=== PATIENT | female | born 1995 | race American Indian/Alaskan Native ===

== ENCOUNTER 2016-09-10 14:49 | Outpatient (CLI) | payer MEDICAID ==
[2016-09-10] MEDS ORDERED: LACTATED RINGERS 500 ML IV ONE (15:04)
[2016-09-10 15:23] VITALS: BP 93/48
[2016-09-10] MEDS ORDERED: IMODIUM PO PRN (15:42)
[2016-09-10] MEDS ORDERED: ZOFRAN IV PRN (15:42)
[2016-09-10 16:49] LABS: Bilirubin,Urine NEG (Negative); Blood,Urine NEG (Negative); Ketones,Urine NEG (Negative); Leukocyte Esterase,Urine NEG (Negative); Nitrite,Urine NEG (Negative); Protein,Urine <15 mg/dL mg/dL (Negative); Urobilinogen,Urine < 2.0 mg/dL (<2.0)
== END 2016-09-10 17:19 | disposition home or self-care (01) ==
LOC: TRG 14:49
PROVIDERS: ATTEND Obstetrics & Gynecology
DX: Z34.90 Encounter for supervision of normal pregnancy, unspecified, unspecified trimester (principal); Z3A.00 Weeks of gestation of pregnancy not specified
CPT/HCPCS: 81001; 96360; 96361; 96374; J2405; J7120

== ENCOUNTER 2016-11-24 15:04 | Outpatient (CLI) | payer MEDICAID ==
[2016-11-24] MEDS ORDERED: LACTATED RINGERS 500 ML IV ONE (15:44)
[2016-11-24 16:01] LABS: Urine Drugs of Abuse Note Disclamer
[2016-11-24 16:22] LABS: Bilirubin,Urine NEG (Negative); Blood,Urine NEG (Negative); Ketones,Urine NEG (Negative); Leukocyte Esterase,Urine NEG (Negative); Mucus,Urine 1+ /HPF; Nitrite,Urine NEG (Negative)
[2016-11-24 16:29] VITALS: BP 101/50
== END 2016-11-24 17:16 | disposition home or self-care (01) ==
LOC: TRG 15:04
PROVIDERS: ATTEND Obstetrics & Gynecology
DX: Z34.93 Encounter for supervision of normal pregnancy, unspecified, third trimester (principal); Z3A.31 31 weeks gestation of pregnancy
CPT/HCPCS: 59025; 80307; 81001

== ENCOUNTER 2016-12-08 22:02 | Outpatient (CLI) | payer MEDICAID ==
[2016-12-08] MEDS ORDERED: LACTATED RINGERS 500 ML IV ONE (22:04)
[2016-12-08 22:21] VITALS: BP 108/56
[2016-12-08 23:02] LABS: Bacteria,Urine 1+ /HPF (Negative); Bilirubin,Urine NEG (Negative); Blood,Urine NEG (Negative); Ketones,Urine NEG (Negative); Leukocyte Esterase,Urine SM (Negative); Mucus,Urine FEW /HPF; Nitrite,Urine NEG (Negative); Protein,Urine <15 mg/dL mg/dL (Negative)
== END 2016-12-08 23:22 | disposition home or self-care (01) ==
LOC: TRG 22:02
PROVIDERS: ATTEND Obstetrics & Gynecology
DX: O47.03 False labor before 37 completed weeks of gestation, third trimester (principal); Z3A.33 33 weeks gestation of pregnancy
CPT/HCPCS: 59025; 81001

== ENCOUNTER 2016-12-13 19:30 | Inpatient (IN) | payer MEDICAID ==
[2016-12-13] MEDS ORDERED: LACTATED RINGERS 500 ML IV ONE (20:01)
[2016-12-13 20:31] LABS: Bilirubin,Urine NEG (Negative); Blood,Urine NEG (Negative); Ketones,Urine NEG (Negative); Leukocyte Esterase,Urine NEG (Negative); Nitrite,Urine NEG (Negative); Protein,Urine <15 mg/dL mg/dL (Negative); Urobilinogen,Urine < 2.0 mg/dL (<2.0); WBC,Urine < 1.0 /HPF (0.0-6.0)
[2016-12-13] MEDS ORDERED: SUDAFED PO PRN (21:19)
[2016-12-13] MEDS ORDERED: DEEP SEA NS PRN (21:19)
[2016-12-13] MEDS ORDERED: ZOFRAN IV PRN (21:19)
[2016-12-13] MEDS ORDERED: MYLICON PO PRN (21:19)
[2016-12-13] MEDS ORDERED: ROBITUSSIN DM PO PRN (21:19)
[2016-12-13] MEDS ORDERED: ALUM-MAG HYDROX-SIMETH 200-200-20MG/5ML PO PRN (21:19)
[2016-12-13] MEDS ORDERED: COLACE PO PRN (21:19)
[2016-12-13] MEDS ORDERED: MILK OF MAGNESIA PO PRN (21:19)
[2016-12-13] MEDS ORDERED: AMBIEN PO PRN (21:19)
[2016-12-13] MEDS ORDERED: TYLENOL PO PRN (21:19)
[2016-12-13] MEDS ORDERED: BENADRYL PO PRN (21:19)
--- NOTE | 2016-12-13 21:39 | History and Physical Report ---
History of Present Illness Date of examination: 12/13/16 Date of admission: 12/13/16 21:15 Chief complaint: Contractions/labor History of present illness: This is the 6th time during this she presented to triage c/o labor, her cervix was 0/0/-3 at her visit 12/08/16, today she is noted to be 2/70/-2 and is admitted for steroid therapy and observation EDC Calculations LMP: 01/23/2017 EDC Confirmation: 01/23/2017 Gestational Age: 14 5/7 weeks Past History : 3 Term Births: 1 Premature Births: 0 Living Children: 1 Para: 1 Mult. Births: 0 Prev : 0 Prev. attempt? 0 Aborta: 1 Elect. Ab: 0 Spont. Ab: 1 Ectopics: 0 # 1 Delivery date: 02/17/2011 Weeks Gestation: 40 labor: no Delivery type: Hours of labor: 8 Anesthesia type: epidural Delivery location: [place] Sex: Male weight: 6-4 Name: Joshua # 2 Delivery date: 01/2016 Weeks Gestation: 5 Delivery type: SAB Comments: No D&C Past Medical History: Negative Past Medical History Past Surgical History: Negative Past Surgical History Past Medical History Surgery (Non-upper shaper): Negative Past Surgical History Abnormal PAP: negative Uterine Anomaly: negative Social Hx: Patient is single engaged Infection History Hx of STD: Trich HIV Risk Eval: low risk Hepatitis B Risk Eval: low risk Personal hx. of genital herpes: no Partner hx. of genital herpes: no Genetic History Congenital Heart Defect: Mom: no Dad: no Felecia Disease: Mom: no Dad: no Thalassemia Mom: no Dad: no Neural Tube Defect Mom: no Dad: no Down's Syndrome Mom: no Dad: no Kartik-Sachs Mom: no Dad: no Sickle Cell Disease/Trait Mom: no Dad: no Hemophilia Mom: no Dad: no Muscular Dystrophy Mom: no Dad: no Cystic Fibrosis Mom: no Dad: no Justin Chorea Mom: no Dad: no Mental Retardation Mom: no Dad: no Fragile X Mom: no Dad: no Other Genetic/Chromosomal Disorder Mom: no Dad: no Child w/other defect Mom: no Dad: no Enviromental Exposures Xray Exposure: yes Medication, drug, or alcohol use since LMP: yes Chemical/Other Exposure: yes Exposure to Cat Liter: no Active Medications (reviewed today): None Current Allergies (reviewed today): No known allergies Past History - Obstetrical History Expected Date of Delivery: 01/23/17 Actual Gestation: 34 Week(s) 1 Day(s) : 3 Medications and Allergies Allergies Allergy/AdvReac Type Severity Reaction Status Date / Time No Known Allergies Allergy Verified 10/28/16 08:25 Home Medications Medication Instructions Recorded Confirmed Last Taken Type Vit No.130/Iron/FA 1 each PO DAILY 10/28/16 12/13/16 12/11/16 14:00 History [ Tablet] 1 Active Meds: Active Medications Acetaminophen (Tylenol) 650 mg PO Q4H PRN PRN Reason: Pain MILD(1-3)/Fever >100.5/CONTEH Al Hydrox/Mg Hydrox/Simethicone (Alum-Mag Hydrox-Simeth [id number]/5ml) 30 ml PO Q6H PRN PRN Reason: Indigestion Betamethasone Acet/Betameth SodPhos ([place] Soluspan) 12 mg IM Q24HR MAXX Stop: 12/14/16 10:01 Diphenhydramine HCl (Benadryl) 25 mg PO Q6H PRN PRN Reason: Itching Docusate Sodium (Colace) 100 mg PO Q12H PRN PRN Reason: Constipation Guaifenesin (Robitussin Dm) 10 ml PO Q6H PRN PRN Reason: Cough Lactated Ringer's (Lactated Ringers) 1,000 mls @ 125 mls/hr IV DIRECT MAXX Magnesium Hydroxide (Milk Of Magnesia) 30 ml PO QHS PRN PRN Reason: Laxative Effect Multivitamins/Iron/Calcium ( Vitamin) 1 each PO QDAY MAXX Ondansetron HCl (Zofran) 4 mg IV Q6H PRN PRN Reason: Nausea And Vomiting Pseudoephedrine HCl (Sudafed) 30 mg PO Q4H PRN PRN Reason: Nasal Congestion Simethicone (Mylicon) 80 mg PO Q6H PRN PRN Reason: Gas pain Sodium Chloride (Deep Sea) 2 spray NS Q4H PRN PRN Reason: Congestion Zolpidem Tartrate (Ambien) 5 mg PO ONCE PRN PRN Reason: Sleep Review of Systems All systems: negative Genitourinary: contractions - Vital Signs Vital signs: Vital Signs Pulse BP 70 96/53 12/13/16 19:44 12/13/16 19:44 Temp Pulse Resp BP Pulse Ox 98.1 F 70 18 96/53 12/13/16 19:57 12/13/16 19:57 12/13/16 19:57 12/13/16 19:57 - Physical Exam Breasts: Positive: deferred Lungs: Positive: Normal air movement Abdomen: Positive: normal appearance, soft Results Abnormal lab results 12/13/16 Range/Units 20:04 Ur Specific [place] 1.002 L (1.003-1.030) All other labs normal. Assessment and Plan - Patient Problems (1) 34 weeks gestation of Current Visit: Yes Status: Acute (2) labor in third trimester Current Visit: Yes Status: Acute Qualifiers: labor delivery status: without delivery Fetus number: F Qualified Code(s): O60.03 - labor without delivery, third trimester Plan to address problem: Admit for observation and steroid therapy
[2016-12-13 21:51] LABS: Hematocrit 31.9 % (30.3-42.9); Hemoglobin 10.6 gm/dl (10.1-14.3); Mean Corpuscular HGB Conc 33 % (30-34); Mean Corpuscular Hemoglobin 29 pg (28-32); Mean Corpuscular Volume 86 fl (79-97); Platelet Count 253 K/mm3 (140-440); White Blood Count 11.6 K/mm3 (4.5-11.0)
[2016-12-13] MEDS: CELESTONE SOLUSPAN IM SCH (23:00)
[2016-12-14] MEDS: LACTATED RINGERS 1,000 ML IV SCH ×2 (01:21→20:19)
[2016-12-14 03:37] LABS: Bilirubin,Urine NEG (Negative); Blood,Urine NEG (Negative); Ketones,Urine NEG (Negative); Leukocyte Esterase,Urine NEG (Negative); Nitrite,Urine NEG (Negative); Protein,Urine <15 mg/dL mg/dL (Negative); WBC,Urine < 1.0 /HPF (0.0-6.0)
[2016-12-14] MEDS ORDERED: PRENATAL VITAMIN PO SCH (10:00)
--- NOTE | 2016-12-14 10:30 | Ultrasound Report ---
Gestation: Single Position: Cephalic Amniotic Fluid: ALDEN = 11.8 cm Placenta: Anterior Placental Grade: 1 Heart Rate: 123 BPM Cervical length: 3.6 cm (Normal > 3 cm) NEUROANATOMY VISUALIZED: Nonvisualized. ANATOMY VISUALIZED: Normal Stomach Kidneys Bladder Diaphragm 4 Chamber Heart Heart 3 Vessel Cord Abd. Cord Insert Limited spine due to position BPD: 8.6 cm = 34 w 3 d HC: 30.6 cm = 34 w d AC: 31.4 cm = 35 w 2 d FL: 6.8 cm = 35 w d HC/AC Ratio: 0.97 Estimated Weight: 2569 grams US Gest. Age = 34 w 4 d EDC: 01/20/17.
--- NOTE | 2016-12-14 11:54 | Progress Note ---
Assessment and Plan Patient resting in bed, states " I feel terrible" reports pain and back that radiates to abd. She denies srom or vag bleeding. TOCO not tracing any ctx, placement checked. Abd palpated soft, no ctx noted during assessment. Plan to continue observation, complete steroids and monitor for signs of labor. Will reexamine cervix tomorrow unless signs of labor present. FHT CAT 1. Continue current plan of care. - Patient Problems (1) 34 weeks gestation of Current Visit: Yes Status: Acute (2) labor in third trimester Current Visit: Yes Status: Acute Qualifiers: labor delivery status: without delivery Fetus number: F Qualified Code(s): O60.03 - labor without delivery, third trimester Subjective - Subjective Date of service: 12/14/16 Principal diagnosis: IUP @ 34+5, contractions, steroids Patient reports: other (pt complains of back pain and abd pressure - no leaking or bleeding.) Objective - Vital Signs Vital Signs: Vital Signs - 12hr 12/13/16 12/13/16 12/13/16 23:48 23:53 23:58 Temperature Pulse Rate 79 76 80 Pulse Rate [ From Monitor] Respiratory Rate Blood Pressure Blood Pressure [Left Arm] O2 Sat by Pulse 98 97 97 Oximetry 12/14/16 12/14/16 12/14/16 00:03 00:08 00:13 Temperature Pulse Rate 81 75 72 Pulse Rate [ From Monitor] Respiratory Rate Blood Pressure Blood Pressure [Left Arm] O2 Sat by Pulse 96 96 95 Oximetry 12/14/16 12/14/16 12/14/16 00:18 00:23 00:29 Temperature Pulse Rate 74 80 90 Pulse Rate [ From Monitor] Respiratory Rate Blood Pressure Blood Pressure [Left Arm] O2 Sat by Pulse 95 96 99 Oximetry 12/14/16 12/14/16 12/14/16 00:34 00:39 00:44 Temperature Pulse Rate 80 90 80 Pulse Rate [ From Monitor] Respiratory Rate Blood Pressure Blood Pressure [Left Arm] O2 Sat by Pulse 98 98 97 Oximetry 12/14/16 12/14/16 12/14/16 00:48 00:54 00:57 Temperature Pulse Rate 80 94 H 89 Pulse Rate [ From Monitor] Respiratory Rate Blood Pressure Blood Pressure [Left Arm] O2 Sat by Pulse 97 97 93 Oximetry 12/14/16 12/14/1617 00:59 01:04 01:09 Temperature Pulse Rate 79 79 82 Pulse Rate [ From Monitor] Respiratory Rate Blood Pressure Blood Pressure [Left Arm] O2 Sat by Pulse 97 97 97 Oximetry 12/14/16 12/14/16 12/14/16 01:14 01:19 01:24 Temperature Pulse Rate 90 79 79 Pulse Rate [ From Monitor] Respiratory Rate Blood Pressure Blood Pressure [Left Arm] O2 Sat by Pulse 97 96 97 Oximetry 12/14/16 12/14/16 12/14/16 01:29 01:30 01:33 Temperature 98.0 F Pulse Rate 83 85 Pulse Rate [ From Monitor] Respiratory Rate Blood Pressure Blood Pressure [Left Arm] O2 Sat by Pulse 96 96 Oximetry 12/14/16 12/14/16 12/14/16 01:39 01:44 01:49 Temperature Pulse Rate 81 90 94 H Pulse Rate [ From Monitor] Respiratory Rate Blood Pressure Blood Pressure [Left Arm] O2 Sat by Pulse 96 96 96 Oximetry 12/14/16 12/14/16 12/14/16 01:54 01:59 02:04 Temperature Pulse Rate 81 81 112 H Pulse Rate [ From Monitor] Respiratory Rate Blood Pressure Blood Pressure [Left Arm] O2 Sat by Pulse 96 95 97 Oximetry 12/14/16 12/14/16 12/14/16 02:09 02:13 02:19 Temperature Pulse Rate 76 78 78 Pulse Rate [ From Monitor] Respiratory Rate Blood Pressure Blood Pressure [Left Arm] O2 Sat by Pulse 96 96 96 Oximetry 12/14/16 12/14/16 12/14/16 02:24 02:29 02:34 Temperature Pulse Rate 76 97 H 83 Pulse Rate [ From Monitor] Respiratory Rate Blood Pressure Blood Pressure [Left Arm] O2 Sat by Pulse 96 97 96 Oximetry 12/14/16 12/14/16 12/14/16 02:39 02:44 02:48 Temperature Pulse Rate 92 H 73 77 Pulse Rate [ From Monitor] Respiratory Rate Blood Pressure Blood Pressure [Left Arm] O2 Sat by Pulse 95 96 96 Oximetry 12/14/16 12/14/16 12/14/16 02:53 02:59 03:04 Temperature Pulse Rate 79 79 83 Pulse Rate [ From Monitor] Respiratory Rate Blood Pressure Blood Pressure [Left Arm] O2 Sat by Pulse 95 96 96 Oximetry 12/14/16 12/14/1612/14/17 03:08 03:13 03:19 Temperature Pulse Rate 73 78 76 Pulse Rate [ From Monitor] Respiratory Rate Blood Pressure Blood Pressure [Left Arm] O2 Sat by Pulse 96 96 96 Oximetry 12/14/16 12/14/16 12/14/16 03:23 03:28 03:33 Temperature Pulse Rate 85 76 78 Pulse Rate [ From Monitor] Respiratory Rate Blood Pressure Blood Pressure [Left Arm] O2 Sat by Pulse 96 96 95 Oximetry 12/14/16 12/14/16 12/14/16 03:39 03:45 03:49 Temperature Pulse Rate 72 72 69 Pulse Rate [ From Monitor] Respiratory Rate Blood Pressure Blood Pressure [Left Arm] O2 Sat by Pulse 99 98 96 Oximetry 12/14/16 12/14/16 12/14/16 03:51 03:55 03:57 Temperature Pulse Rate 70 86 91 H Pulse Rate [ From Monitor] Respiratory Rate Blood Pressure Blood Pressure [Left Arm] O2 Sat by Pulse 94 98 94 Oximetry 12/14/16 12/14/16 12/14/16 04:00 04:05 04:11 Temperature Pulse Rate 88 91 H 96 H Pulse Rate [ From Monitor] Respiratory Rate Blood Pressure Blood Pressure [Left Arm] O2 Sat by Pulse 96 96 97 Oximetry 12/14/16 12/14/16 12/14/16 04:17 04:21 04:26 Temperature Pulse Rate 102 H 87 79 Pulse Rate [ From Monitor] Respiratory Rate Blood Pressure Blood Pressure [Left Arm] O2 Sat by Pulse 96 97 97 Oximetry 12/14/16 12/14/16 12/14/16 04:31 04:36 04:41 Temperature Pulse Rate 75 81 85 Pulse Rate [ From Monitor] Respiratory Rate Blood Pressure Blood Pressure [Left Arm] O2 Sat by Pulse 96 97 97 Oximetry 12/14/16 12/14/16 12/14/16 04:46 04:51 04:56 Temperature Pulse Rate 82 69 89 Pulse Rate [ From Monitor] Respiratory Rate Blood Pressure Blood Pressure [Left Arm] O2 Sat by Pulse 97 98 97 Oximetry 12/14/16 12/14/16 12/14/16 05:01 05:06 05:11 Temperature Pulse Rate 78 94 H 79 Pulse Rate [ From Monitor] Respiratory Rate Blood Pressure Blood Pressure [Left Arm] O2 Sat by Pulse 97 97 98 Oximetry 12/14/16 12/14/1612/14/17 05:16 05:21 05:26 Temperature Pulse Rate 81 82 71 Pulse Rate [ From Monitor] Respiratory Rate Blood Pressure Blood Pressure [Left Arm] O2 Sat by Pulse 98 96 97 Oximetry 12/14/16 12/14/16 12/14/16 05:31 05:37 05:42 Temperature Pulse Rate 72 77 80 Pulse Rate [ From Monitor] Respiratory Rate Blood Pressure Blood Pressure [Left Arm] O2 Sat by Pulse 97 96 97 Oximetry 12/14/16 12/14/16 12/14/16 05:47 05:52 05:57 Temperature Pulse Rate 80 78 79 Pulse Rate [ From Monitor] Respiratory Rate Blood Pressure Blood Pressure [Left Arm] O2 Sat by Pulse 97 97 97 Oximetry 12/14/16 12/14/16 12/14/16 06:02 06:08 06:12 Temperature Pulse Rate 76 77 72 Pulse Rate [ From Monitor] Respiratory Rate Blood Pressure Blood Pressure [Left Arm] O2 Sat by Pulse 97 96 97 Oximetry 12/14/16 12/14/16 12/14/16 06:17 06:22 06:27 Temperature Pulse Rate 89 72 77 Pulse Rate [ From Monitor] Respiratory Rate Blood Pressure Blood Pressure [Left Arm] O2 Sat by Pulse 97 97 97 Oximetry 12/14/16 12/14/16 12/14/16 06:32 06:37 06:42 Temperature Pulse Rate 76 75 74 Pulse Rate [ From Monitor] Respiratory Rate Blood Pressure Blood Pressure [Left Arm] O2 Sat by Pulse 96 96 96 Oximetry 12/14/16 12/14/16 12/14/16 06:47 06:52 06:57 Temperature Pulse Rate 79 92 H 82 Pulse Rate [ From Monitor] Respiratory Rate Blood Pressure Blood Pressure [Left Arm] O2 Sat by Pulse 96 97 97 Oximetry 12/14/16 12/14/16 12/14/16 07:02 07:07 07:12 Temperature Pulse Rate 79 76 91 H Pulse Rate [ From Monitor] Respiratory Rate Blood Pressure Blood Pressure [Left Arm] O2 Sat by Pulse 98 97 97 Oximetry 12/14/16 12/14/16 12/14/16 07:17 07:22 07:27 Temperature Pulse Rate 80 76 82 Pulse Rate [ From Monitor] Respiratory Rate Blood Pressure Blood Pressure [Left Arm] O2 Sat by Pulse 98 98 96 Oximetry 12/14/16 12/14/16 12/14/16 07:34 07:39 07:44 Temperature Pulse Rate 100 H 77 90 Pulse Rate [ From Monitor] Respiratory Rate Blood Pressure Blood Pressure [Left Arm] O2 Sat by Pulse 96 97 97 Oximetry 12/14/16 12/14/16 12/14/16 07:49 07:54 07:59 Temperature Pulse Rate 78 79 94 H Pulse Rate [ From Monitor] Respiratory Rate Blood Pressure Blood Pressure [Left Arm] O2 Sat by Pulse 97 97 97 Oximetry 12/14/16 12/14/16 12/14/16 08:02 08:04 08:08 Temperature 97.6 F Pulse Rate 80 91 H Pulse Rate [ 85 From Monitor] Respiratory 18 Rate Blood Pressure 109/56 Blood Pressure 109/56 [Left Arm] O2 Sat by Pulse 97 98 Oximetry 12/14/16 12/14/16 12/14/16 08:09 08:13 08:14 Temperature Pulse Rate 83 91 H 91 H Pulse Rate [ From Monitor] Respiratory Rate Blood Pressure Blood Pressure [Left Arm] O2 Sat by Pulse 97 93 94 Oximetry 12/14/16 12/14/16 12/14/16 08:19 08:24 08:29 Temperature Pulse Rate 84 90 77 Pulse Rate [ From Monitor] Respiratory Rate Blood Pressure Blood Pressure [Left Arm] O2 Sat by Pulse 98 97 98 Oximetry 12/14/16 12/14/16 12/14/16 08:34 08:39 08:44 Temperature Pulse Rate 83 97 H 86 Pulse Rate [ From Monitor] Respiratory Rate Blood Pressure Blood Pressure [Left Arm] O2 Sat by Pulse 98 97 98 Oximetry 12/14/16 12/14/16 12/14/16 08:49 08:54 08:59 Temperature Pulse Rate 85 87 87 Pulse Rate [ From Monitor] Respiratory Rate Blood Pressure Blood Pressure [Left Arm] O2 Sat by Pulse 97 97 97 Oximetry 12/14/16 12/14/16 12/14/16 09:04 09:09 09:14 Temperature Pulse Rate 95 H 93 H 98 H Pulse Rate [ From Monitor] Respiratory Rate Blood Pressure Blood Pressure [Left Arm] O2 Sat by Pulse 97 97 97 Oximetry 12/14/16 12/14/16 12/14/16 09:19 09:24 09:29 Temperature Pulse Rate 96 H 82 95 H Pulse Rate [ From Monitor] Respiratory Rate Blood Pressure Blood Pressure [Left Arm] O2 Sat by Pulse 97 97 97 Oximetry 12/14/16 12/14/16 12/14/16 09:34 09:39 09:44 Temperature Pulse Rate 80 86 85 Pulse Rate [ From Monitor] Respiratory Rate Blood Pressure Blood Pressure [Left Arm] O2 Sat by Pulse 97 97 97 Oximetry 12/14/16 12/14/16 12/14/16 09:49 09:54 10:08 Temperature Pulse Rate 92 H 77 85 Pulse Rate [ From Monitor] Respiratory Rate Blood Pressure Blood Pressure [Left Arm] O2 Sat by Pulse 97 96 99 Oximetry 12/14/16 12/14/16 12/14/16 10:13 10:18 10:23 Temperature Pulse Rate 76 85 78 Pulse Rate [ From Monitor] Respiratory Rate Blood Pressure Blood Pressure [Left Arm] O2 Sat by Pulse 99 98 98 Oximetry 12/14/16 12/14/16 12/14/16 10:28 10:33 10:38 Temperature Pulse Rate 79 77 90 Pulse Rate [ From Monitor] Respiratory Rate Blood Pressure Blood Pressure [Left Arm] O2 Sat by Pulse 98 97 98 Oximetry 12/14/16 12/14/16 12/14/16 10:41 10:43 10:48 Temperature Pulse Rate 81 78 82 Pulse Rate [ From Monitor] Respiratory Rate Blood Pressure 108/58 Blood Pressure [Left Arm] O2 Sat by Pulse 98 98 Oximetry 12/14/16 12/14/16 12/14/16 10:53 10:58 11:03 Temperature Pulse Rate 105 H 80 81 Pulse Rate [ From Monitor] Respiratory Rate Blood Pressure Blood Pressure [Left Arm] O2 Sat by Pulse 99 98 98 Oximetry 12/14/16 12/14/16 12/14/16 11:08 11:13 11:18 Temperature Pulse Rate 82 95 H 80 Pulse Rate [ From Monitor] Respiratory Rate Blood Pressure Blood Pressure [Left Arm] O2 Sat by Pulse 98 98 99 Oximetry 12/14/16 12/14/16 12/14/16 11:23 11:28 11:33 Temperature Pulse Rate 77 72 80 Pulse Rate [ From Monitor] Respiratory Rate Blood Pressure Blood Pressure [Left Arm] O2 Sat by Pulse 98 98 99 Oximetry 12/14/16 12/14/16 11:38 11:43 Temperature Pulse Rate 75 83 Pulse Rate [ From Monitor] Respiratory Rate Blood Pressure Blood Pressure [Left Arm] O2 Sat by Pulse 97 97 Oximetry - Exam Breasts: normal Cardiovascular: Regular rate Lungs: Clear to auscultation, Normal air movement Abdomen: Present: normal appearance, soft Vulva: both: normal Uterus: Present: normal FHR: auscultation normal, category 1 Uterine Contraction Monitor Mode: External Uterine Contraction Frequency (min): none Uterine Contraction Pattern: Absent Uterine Tone Measurement Phase: Resting Extremities: normal Deep Tendon Reflex Grade: Normal +2 - Labs Labs: Abnormal Labs 12/13/16 12/13/16 20:04 21:00 WBC 11.6 H RDW 12.0 L Ur Specific [place] 1.002 L Laboratory Results - last 24 hr 12/13/16 12/13/16 12/13/16 20:04 21:00 21:00 WBC 11.6 H RBC 3.70 Hgb 10.6 Hct 31.9 MCV 86 MCH 29 MCHC 33 RDW 12.0 L Plt Count 253 Urine Color Straw Urine Turbidity Clear Urine pH 7.0 Ur Specific [place] 1.002 L Urine Protein <15 mg/dl Urine Glucose (UA) Neg Urine Ketones Neg Urine Blood Neg Urine Nitrite Neg Urine Bilirubin Neg Urine Urobilinogen < 2.0 Ur Leukocyte Esterase Neg Urine WBC (Auto) < 1.0 Urine RBC (Auto) 0.0 U Epithel Cells (Auto) < 1.0 Blood Type O POSITIVE Antibody Screen TNR OTONIEL Antibody Screen Negative 12/14/16 03:13 WBC RBC Hgb Hct MCV MCH MCHC RDW Plt Count Urine Color Yellow Urine Turbidity Clear Urine pH 7.0 Ur Specific [place] 1.009 Urine Protein <15 mg/dl Urine Glucose (UA) Neg Urine Ketones Neg Urine Blood Neg Urine Nitrite Neg Urine Bilirubin Neg Urine Urobilinogen 2.0 Ur Leukocyte Esterase Neg Urine WBC (Auto) < 1.0 Urine RBC (Auto) 3.0 U Epithel Cells (Auto) < 1.0 Blood Type Antibody Screen OTONIEL Antibody Screen
[2016-12-14] MEDS ORDERED: IMODIUM A-D PO PRN (14:09)
--- NOTE | 2016-12-14 14:17 | Progress Note ---
Assessment and Plan - Patient Problems (1) 34 weeks gestation of Current Visit: Yes Status: Acute Plan to address problem: -s/p steroids times one dose -second dose due tonight -will dc home tomorrow if stable and no signs of labor and no cervical change -cat I tracing at this time (2) labor in third trimester Current Visit: Yes Status: Acute Qualifiers: labor delivery status: without delivery Fetus number: F Qualified Code(s): O60.03 - labor without delivery, third trimester Plan to address problem: -will con't with current management. second dose of steroids are due at 2300pm. -If no cervical change or signs of active labor will plan of d/c home tomorrow. Subjective - Subjective Date of service: 12/14/16 Principal diagnosis: IUP @ 34+5, contractions, steroids Interval history: Pt c/o having some back pain and pelvic pressure but no abdominal contractions. She also c/o having some diarrhea. +FM. [place] f care di/w pt and questions and pt were addressed and answered. BMZ #2/2 will be given tonight at 2300pm. Patient reports: movement normal, other (pt complains of back pain and abd pressure - no leaking or bleeding.), no new complaints, no loss of fluid, no vaginal bleeding Objective - Vital Signs Vital Signs: Vital Signs - 12hr 12/14/16 12/14/16 12/14/16 02:13 02:19 02:24 Temperature Pulse Rate 78 78 76 Pulse Rate [ From Monitor] Respiratory Rate Blood Pressure Blood Pressure [Left Arm] O2 Sat by Pulse 96 96 96 Oximetry 12/14/16 12/14/16 12/14/16 02:29 02:34 02:39 Temperature Pulse Rate 97 H 83 92 H Pulse Rate [ From Monitor] Respiratory Rate Blood Pressure Blood Pressure [Left Arm] O2 Sat by Pulse 97 96 95 Oximetry 12/14/16 12/14/16 12/14/16 02:44 02:48 02:53 Temperature Pulse Rate 73 77 79 Pulse Rate [ From Monitor] Respiratory Rate Blood Pressure Blood Pressure [Left Arm] O2 Sat by Pulse 96 96 95 Oximetry 12/14/16 12/14/16 12/14/16 02:59 03:04 03:08 Temperature Pulse Rate 79 83 73 Pulse Rate [ From Monitor] Respiratory Rate Blood Pressure Blood Pressure [Left Arm] O2 Sat by Pulse 96 96 96 Oximetry 12/14/16 12/14/16 12/14/16 03:13 03:19 03:23 Temperature Pulse Rate 78 76 85 Pulse Rate [ From Monitor] Respiratory Rate Blood Pressure Blood Pressure [Left Arm] O2 Sat by Pulse 96 96 96 Oximetry 12/14/16 12/14/16 12/14/16 03:28 03:33 03:39 Temperature Pulse Rate 76 78 72 Pulse Rate [ From Monitor] Respiratory Rate Blood Pressure Blood Pressure [Left Arm] O2 Sat by Pulse 96 95 99 Oximetry 12/14/16 12/14/16 12/14/16 03:45 03:49 03:51 Temperature Pulse Rate 72 69 70 Pulse Rate [ From Monitor] Respiratory Rate Blood Pressure Blood Pressure [Left Arm] O2 Sat by Pulse 98 96 94 Oximetry 12/14/16 12/14/16 12/14/16 03:55 03:57 04:00 Temperature Pulse Rate 86 91 H 88 Pulse Rate [ From Monitor] Respiratory Rate Blood Pressure Blood Pressure [Left Arm] O2 Sat by Pulse 98 94 96 Oximetry 12/14/16 12/14/16 12/14/16 04:05 04:11 04:17 Temperature Pulse Rate 91 H 96 H 102 H Pulse Rate [ From Monitor] Respiratory Rate Blood Pressure Blood Pressure [Left Arm] O2 Sat by Pulse 96 97 96 Oximetry 12/14/16 12/14/16 12/14/16 04:21 04:26 04:31 Temperature Pulse Rate 87 79 75 Pulse Rate [ From Monitor] Respiratory Rate Blood Pressure Blood Pressure [Left Arm] O2 Sat by Pulse 97 97 96 Oximetry 12/14/16 12/14/16 12/14/16 04:36 04:41 04:46 Temperature Pulse Rate 81 85 82 Pulse Rate [ From Monitor] Respiratory Rate Blood Pressure Blood Pressure [Left Arm] O2 Sat by Pulse 97 97 97 Oximetry 12/14/16 12/14/16 12/14/16 04:51 04:56 05:01 Temperature Pulse Rate 69 89 78 Pulse Rate [ From Monitor] Respiratory Rate Blood Pressure Blood Pressure [Left Arm] O2 Sat by Pulse 98 97 97 Oximetry 12/14/16 12/14/16 12/14/16 05:06 05:11 05:16 Temperature Pulse Rate 94 H 79 81 Pulse Rate [ From Monitor] Respiratory Rate Blood Pressure Blood Pressure [Left Arm] O2 Sat by Pulse 97 98 98 Oximetry 12/14/16 12/14/16 12/14/16 05:21 05:26 05:31 Temperature Pulse Rate 82 71 72 Pulse Rate [ From Monitor] Respiratory Rate Blood Pressure Blood Pressure [Left Arm] O2 Sat by Pulse 96 97 97 Oximetry 12/14/16 12/14/16 12/14/16 05:37 05:42 05:47 Temperature Pulse Rate 77 80 80 Pulse Rate [ From Monitor] Respiratory Rate Blood Pressure Blood Pressure [Left Arm] O2 Sat by Pulse 96 97 97 Oximetry 12/14/16 12/14/16 12/14/16 05:52 05:57 06:02 Temperature Pulse Rate 78 79 76 Pulse Rate [ From Monitor] Respiratory Rate Blood Pressure Blood Pressure [Left Arm] O2 Sat by Pulse 97 97 97 Oximetry 12/14/16 12/14/16 12/14/16 06:08 06:12 06:17 Temperature Pulse Rate 77 72 89 Pulse Rate [ From Monitor] Respiratory Rate Blood Pressure Blood Pressure [Left Arm] O2 Sat by Pulse 96 97 97 Oximetry 12/14/16 12/14/16 12/14/16 06:22 06:27 06:32 Temperature Pulse Rate 72 77 76 Pulse Rate [ From Monitor] Respiratory Rate Blood Pressure Blood Pressure [Left Arm] O2 Sat by Pulse 97 97 96 Oximetry 12/14/16 12/14/16 12/14/16 06:37 06:42 06:47 Temperature Pulse Rate 75 74 79 Pulse Rate [ From Monitor] Respiratory Rate Blood Pressure Blood Pressure [Left Arm] O2 Sat by Pulse 96 96 96 Oximetry 12/14/16 12/14/16 12/14/16 06:52 06:57 07:02 Temperature Pulse Rate 92 H 82 79 Pulse Rate [ From Monitor] Respiratory Rate Blood Pressure Blood Pressure [Left Arm] O2 Sat by Pulse 97 97 98 Oximetry 12/14/16 12/14/16 12/14/16 07:07 07:12 07:17 Temperature Pulse Rate 76 91 H 80 Pulse Rate [ From Monitor] Respiratory Rate Blood Pressure Blood Pressure [Left Arm] O2 Sat by Pulse 97 97 98 Oximetry 12/14/16 12/14/16 12/14/16 07:22 07:27 07:34 Temperature Pulse Rate 76 82 100 H Pulse Rate [ From Monitor] Respiratory Rate Blood Pressure Blood Pressure [Left Arm] O2 Sat by Pulse 98 96 96 Oximetry 12/14/16 12/14/16 12/14/16 07:39 07:44 07:49 Temperature Pulse Rate 77 90 78 Pulse Rate [ From Monitor] Respiratory Rate Blood Pressure Blood Pressure [Left Arm] O2 Sat by Pulse 97 97 97 Oximetry 12/14/16 12/14/16 12/14/16 07:54 07:59 08:02 Temperature Pulse Rate 79 94 H 80 Pulse Rate [ From Monitor] Respiratory Rate Blood Pressure 109/56 Blood Pressure [Left Arm] O2 Sat by Pulse 97 97 Oximetry 12/14/16 12/14/16 12/14/16 08:04 08:08 08:09 Temperature 97.6 F Pulse Rate 91 H 83 Pulse Rate [ 85 From Monitor] Respiratory 18 Rate Blood Pressure Blood Pressure 109/56 [Left Arm] O2 Sat by Pulse 97 98 97 Oximetry 12/14/16 12/14/16 12/14/16 08:13 08:14 08:19 Temperature Pulse Rate 91 H 91 H 84 Pulse Rate [ From Monitor] Respiratory Rate Blood Pressure Blood Pressure [Left Arm] O2 Sat by Pulse 93 94 98 Oximetry 12/14/16 12/14/16 12/14/16 08:24 08:29 08:34 Temperature Pulse Rate 90 77 83 Pulse Rate [ From Monitor] Respiratory Rate Blood Pressure Blood Pressure [Left Arm] O2 Sat by Pulse 97 98 98 Oximetry 12/14/16 12/14/16 12/14/16 08:39 08:44 08:49 Temperature Pulse Rate 97 H 86 85 Pulse Rate [ From Monitor] Respiratory Rate Blood Pressure Blood Pressure [Left Arm] O2 Sat by Pulse 97 98 97 Oximetry 12/14/16 12/14/16 12/14/16 08:54 08:59 09:04 Temperature Pulse Rate 87 87 95 H Pulse Rate [ From Monitor] Respiratory Rate Blood Pressure Blood Pressure [Left Arm] O2 Sat by Pulse 97 97 97 Oximetry 12/14/16 12/14/16 12/14/16 09:09 09:14 09:19 Temperature Pulse Rate 93 H 98 H 96 H Pulse Rate [ From Monitor] Respiratory Rate Blood Pressure Blood Pressure [Left Arm] O2 Sat by Pulse 97 97 97 Oximetry 12/14/16 12/14/16 12/14/16 09:24 09:29 09:34 Temperature Pulse Rate 82 95 H 80 Pulse Rate [ From Monitor] Respiratory Rate Blood Pressure Blood Pressure [Left Arm] O2 Sat by Pulse 97 97 97 Oximetry 12/14/16 12/14/16 12/14/16 09:39 09:44 09:49 Temperature Pulse Rate 86 85 92 H Pulse Rate [ From Monitor] Respiratory Rate Blood Pressure Blood Pressure [Left Arm] O2 Sat by Pulse 97 97 97 Oximetry 12/14/16 12/14/16 12/14/16 09:54 10:08 10:13 Temperature Pulse Rate 77 85 76 Pulse Rate [ From Monitor] Respiratory Rate Blood Pressure Blood Pressure [Left Arm] O2 Sat by Pulse 96 99 99 Oximetry 12/14/16 12/14/16 12/14/16 10:18 10:23 10:28 Temperature Pulse Rate 85 78 79 Pulse Rate [ From Monitor] Respiratory Rate Blood Pressure Blood Pressure [Left Arm] O2 Sat by Pulse 98 98 98 Oximetry 12/14/16 12/14/16 12/14/16 10:33 10:38 10:41 Temperature Pulse Rate 77 90 81 Pulse Rate [ From Monitor] Respiratory Rate Blood Pressure 108/58 Blood Pressure [Left Arm] O2 Sat by Pulse 97 98 Oximetry 12/14/16 12/14/16 12/14/16 10:43 10:48 10:53 Temperature Pulse Rate 78 82 105 H Pulse Rate [ From Monitor] Respiratory Rate Blood Pressure Blood Pressure [Left Arm] O2 Sat by Pulse 98 98 99 Oximetry 12/14/16 12/14/16 12/14/16 10:58 11:03 11:08 Temperature Pulse Rate 80 81 82 Pulse Rate [ From Monitor] Respiratory Rate Blood Pressure Blood Pressure [Left Arm] O2 Sat by Pulse 98 98 98 Oximetry 12/14/16 12/14/16 12/14/16 11:13 11:18 11:23 Temperature Pulse Rate 95 H 80 77 Pulse Rate [ From Monitor] Respiratory Rate Blood Pressure Blood Pressure [Left Arm] O2 Sat by Pulse 98 99 98 Oximetry 12/14/16 12/14/16 12/14/16 11:28 11:33 11:38 Temperature Pulse Rate 72 80 75 Pulse Rate [ From Monitor] Respiratory Rate Blood Pressure Blood Pressure [Left Arm] O2 Sat by Pulse 98 99 97 Oximetry 12/14/16 12/14/16 12/14/16 11:43 11:48 11:53 Temperature Pulse Rate 83 84 73 Pulse Rate [ From Monitor] Respiratory Rate Blood Pressure Blood Pressure [Left Arm] O2 Sat by Pulse 97 97 99 Oximetry 12/14/16 12/14/16 12/14/16 11:58 12:03 12:08 Temperature Pulse Rate 91 H 70 70 Pulse Rate [ From Monitor] Respiratory Rate Blood Pressure Blood Pressure [Left Arm] O2 Sat by Pulse 97 98 98 Oximetry 12/14/16 12/14/16 12/14/16 12:13 12:20 12:25 Temperature Pulse Rate 68 103 H 79 Pulse Rate [ From Monitor] Respiratory Rate Blood Pressure 104/54 Blood Pressure [Left Arm] O2 Sat by Pulse 98 98 99 Oximetry 12/14/16 12/14/16 12/14/16 12:26 12:30 12:35 Temperature 97.6 F Pulse Rate 80 81 Pulse Rate [ 89 From Monitor] Respiratory 18 Rate Blood Pressure Blood Pressure 104/54 [Left Arm] O2 Sat by Pulse 99 98 98 Oximetry 12/14/16 12/14/16 12/14/16 12:40 12:45 12:50 Temperature Pulse Rate 91 H 80 98 H Pulse Rate [ From Monitor] Respiratory Rate Blood Pressure Blood Pressure [Left Arm] O2 Sat by Pulse 98 98 99 Oximetry 12/14/16 12/14/16 12/14/16 12:55 13:00 13:05 Temperature Pulse Rate 83 80 89 Pulse Rate [ From Monitor] Respiratory Rate Blood Pressure Blood Pressure [Left Arm] O2 Sat by Pulse 98 99 98 Oximetry 12/14/16 12/14/16 12/14/16 13:10 13:15 13:20 Temperature Pulse Rate 78 77 79 Pulse Rate [ From Monitor] Respiratory Rate Blood Pressure Blood Pressure [Left Arm] O2 Sat by Pulse 99 98 97 Oximetry 12/14/16 12/14/16 12/14/16 13:25 13:30 13:35 Temperature Pulse Rate 77 79 83 Pulse Rate [ From Monitor] Respiratory Rate Blood Pressure Blood Pressure [Left Arm] O2 Sat by Pulse 98 99 98 Oximetry 12/14/16 12/14/16 12/14/16 13:40 13:45 13:58 Temperature Pulse Rate 78 80 101 H Pulse Rate [ From Monitor] Respiratory Rate Blood Pressure Blood Pressure [Left Arm] O2 Sat by Pulse 98 97 98 Oximetry 12/14/16 14:03 Temperature Pulse Rate 99 H Pulse Rate [ From Monitor] Respiratory Rate Blood Pressure Blood Pressure [Left Arm] O2 Sat by Pulse 98 Oximetry - Exam Cardiovascular: Normal S1, Normal S2 Lungs: Clear to auscultation, Normal air movement Abdomen: Present: normal appearance, soft. Absent: distention, tenderness, guarding Uterus: Present: normal, firm FHR: category 1 Uterine Contraction Pattern: Irregular Uterine Contraction Intensity: Mild Extremities: normal - Labs Labs: Abnormal Labs 12/13/16 12/13/16 20:04 21:00 WBC 11.6 H RDW 12.0 L Ur Specific [place] 1.002 L Laboratory Results - last 24 hr 12/13/16 12/13/16 12/13/16 20:04 21:00 21:00 WBC 11.6 H RBC 3.70 Hgb 10.6 Hct 31.9 MCV 86 MCH 29 MCHC 33 RDW 12.0 L Plt Count 253 Urine Color Straw Urine Turbidity Clear Urine pH 7.0 Ur Specific [place] 1.002 L Urine Protein <15 mg/dl Urine Glucose (UA) Neg Urine Ketones Neg Urine Blood Neg Urine Nitrite Neg Urine Bilirubin Neg Urine Urobilinogen < 2.0 Ur Leukocyte Esterase Neg Urine WBC (Auto) < 1.0 Urine RBC (Auto) 0.0 U Epithel Cells (Auto) < 1.0 Blood Type O POSITIVE Antibody Screen TNR OTONIEL Antibody Screen Negative 12/14/16 03:13 WBC RBC Hgb Hct MCV MCH MCHC RDW Plt Count Urine Color Yellow Urine Turbidity Clear Urine pH 7.0 Ur Specific [place] 1.009 Urine Protein <15 mg/dl Urine Glucose (UA) Neg Urine Ketones Neg Urine Blood Neg Urine Nitrite Neg Urine Bilirubin Neg Urine Urobilinogen 2.0 Ur Leukocyte Esterase Neg Urine WBC (Auto) < 1.0 Urine RBC (Auto) 3.0 U Epithel Cells (Auto) < 1.0 Blood Type Antibody Screen OTONIEL Antibody Screen
[2016-12-14] MEDS: SUBLIMAZE IV SCH ×2 (17:54→23:18)
[2016-12-14] MEDS: CELESTONE SOLUSPAN IM SCH (23:00)
[2016-12-15] MEDS: LACTATED RINGERS 1,000 ML IV SCH (04:17)
[2016-12-15 07:09] VITALS: BP 113/54
--- NOTE | 2016-12-15 10:08 | Progress Note ---
Assessment and Plan patient doing well, denies leaking, bleeding or ctx. reports active fm. no cervical change. steroids complete. desires d/c home. VSSAF. Dr. Herr consulted; plan to d/c home with f/u in office as scheduled in 1 week. - Patient Problems (1) 34 weeks gestation of Current Visit: Yes Status: Acute (2) labor in third trimester Current Visit: Yes Status: Acute Qualifiers: labor delivery status: without delivery Fetus number: F Qualified Code(s): O60.03 - labor without delivery, third trimester Subjective - Subjective Date of service: 12/15/16 Principal diagnosis: IUP @ 34+6, contractions, steroids Patient reports: movement normal, other (patient desires d/c home, reports feeling better), no new complaints, no loss of fluid, no vaginal bleeding Objective - Vital Signs Vital Signs: Vital Signs - 12hr 12/14/16 12/14/16 12/14/16 23:01 23:06 23:11 Temperature Pulse Rate 77 75 69 Pulse Rate [ From Monitor] Respiratory Rate Blood Pressure Blood Pressure [Left Arm] O2 Sat by Pulse 97 96 97 Oximetry 12/14/16 12/14/16 12/14/16 23:16 23:18 23:21 Temperature Pulse Rate 86 94 H Pulse Rate [ From Monitor] Respiratory 18 Rate Blood Pressure Blood Pressure [Left Arm] O2 Sat by Pulse 98 98 Oximetry 12/14/16 12/14/16 12/14/16 23:26 23:33 23:37 Temperature Pulse Rate 79 83 79 Pulse Rate [ From Monitor] Respiratory Rate Blood Pressure 105/55 Blood Pressure [Left Arm] O2 Sat by Pulse 98 97 Oximetry 12/14/16 12/14/16 12/14/16 23:38 23:43 23:48 Temperature 98.0 F Pulse Rate 86 76 85 Pulse Rate [ 87 From Monitor] Respiratory 18 Rate Blood Pressure Blood Pressure 105/55 [Left Arm] O2 Sat by Pulse 97 97 97 Oximetry 12/14/16 12/14/16 12/15/16 23:53 23:58 00:03 Temperature Pulse Rate 79 72 82 Pulse Rate [ From Monitor] Respiratory Rate Blood Pressure Blood Pressure [Left Arm] O2 Sat by Pulse 96 96 96 Oximetry 12/15/16 12/15/16 12/15/16 00:08 00:13 00:18 Temperature Pulse Rate 69 68 69 Pulse Rate [ From Monitor] Respiratory Rate Blood Pressure Blood Pressure [Left Arm] O2 Sat by Pulse 97 96 96 Oximetry 12/15/16 12/15/16 12/15/16 00:23 00:28 00:33 Temperature Pulse Rate 72 78 71 Pulse Rate [ From Monitor] Respiratory Rate Blood Pressure Blood Pressure [Left Arm] O2 Sat by Pulse 96 97 96 Oximetry 12/15/16 12/15/16 12/15/16 00:38 00:41 00:43 Temperature Pulse Rate 72 72 68 Pulse Rate [ From Monitor] Respiratory Rate Blood Pressure Blood Pressure [Left Arm] O2 Sat by Pulse 96 94 95 Oximetry 12/15/16 12/15/16 12/15/16 00:48 00:53 00:58 Temperature Pulse Rate 65 66 67 Pulse Rate [ From Monitor] Respiratory Rate Blood Pressure Blood Pressure [Left Arm] O2 Sat by Pulse 96 97 97 Oximetry 12/15/16 12/15/16 12/15/16 01:03 01:08 01:13 Temperature Pulse Rate 69 92 H 84 Pulse Rate [ From Monitor] Respiratory Rate Blood Pressure Blood Pressure [Left Arm] O2 Sat by Pulse 96 96 97 Oximetry 12/15/16 12/15/16 12/15/16 01:18 01:23 01:28 Temperature Pulse Rate 64 65 66 Pulse Rate [ From Monitor] Respiratory Rate Blood Pressure Blood Pressure [Left Arm] O2 Sat by Pulse 96 96 95 Oximetry 12/15/16 12/15/16 12/15/16 01:33 01:38 01:43 Temperature Pulse Rate 80 74 64 Pulse Rate [ From Monitor] Respiratory Rate Blood Pressure Blood Pressure [Left Arm] O2 Sat by Pulse 97 98 96 Oximetry 12/15/16 12/15/16 12/15/16 01:48 01:53 01:58 Temperature Pulse Rate 68 68 69 Pulse Rate [ From Monitor] Respiratory Rate Blood Pressure Blood Pressure [Left Arm] O2 Sat by Pulse 96 97 96 Oximetry 12/15/16 12/15/16 12/15/16 02:03 02:08 02:13 Temperature Pulse Rate 71 72 69 Pulse Rate [ From Monitor] Respiratory Rate Blood Pressure Blood Pressure [Left Arm] O2 Sat by Pulse 96 96 96 Oximetry 12/15/16 12/15/16 12/15/16 02:18 02:23 02:28 Temperature Pulse Rate 72 101 H 87 Pulse Rate [ From Monitor] Respiratory Rate Blood Pressure Blood Pressure [Left Arm] O2 Sat by Pulse 96 97 98 Oximetry 12/15/16 12/15/16 12/15/16 02:29 02:33 02:38 Temperature Pulse Rate 96 H 75 75 Pulse Rate [ From Monitor] Respiratory Rate Blood Pressure Blood Pressure [Left Arm] O2 Sat by Pulse 89 96 97 Oximetry 12/15/16 12/15/16 12/15/16 02:43 02:48 02:53 Temperature Pulse Rate 75 78 77 Pulse Rate [ From Monitor] Respiratory Rate Blood Pressure Blood Pressure [Left Arm] O2 Sat by Pulse 97 97 96 Oximetry 12/15/16 12/15/16 12/15/16 02:58 03:03 03:08 Temperature Pulse Rate 83 80 82 Pulse Rate [ From Monitor] Respiratory Rate Blood Pressure Blood Pressure [Left Arm] O2 Sat by Pulse 96 97 97 Oximetry 12/15/16 12/15/16 12/15/16 03:13 03:18 03:23 Temperature Pulse Rate 87 83 85 Pulse Rate [ From Monitor] Respiratory Rate Blood Pressure Blood Pressure [Left Arm] O2 Sat by Pulse 96 96 96 Oximetry 12/15/16 12/15/16 12/15/16 03:28 03:33 03:38 Temperature Pulse Rate 82 83 86 Pulse Rate [ From Monitor] Respiratory Rate Blood Pressure Blood Pressure [Left Arm] O2 Sat by Pulse 97 96 96 Oximetry 12/15/16 12/15/16 12/15/16 03:43 03:50 03:55 Temperature Pulse Rate 84 94 H 90 Pulse Rate [ From Monitor] Respiratory Rate Blood Pressure Blood Pressure [Left Arm] O2 Sat by Pulse 96 96 96 Oximetry 12/15/16 12/15/16 12/15/16 04:00 04:02 04:05 Temperature Pulse Rate 84 86 89 Pulse Rate [ From Monitor] Respiratory Rate Blood Pressure Blood Pressure [Left Arm] O2 Sat by Pulse 95 94 96 Oximetry 12/15/16 12/15/16 12/15/16 04:10 04:11 04:15 Temperature Pulse Rate 86 99 H 91 H Pulse Rate [ From Monitor] Respiratory Rate Blood Pressure Blood Pressure [Left Arm] O2 Sat by Pulse 95 94 96 Oximetry 12/15/16 12/15/16 12/15/16 04:20 04:25 04:30 Temperature Pulse Rate 82 89 91 H Pulse Rate [ From Monitor] Respiratory Rate Blood Pressure Blood Pressure [Left Arm] O2 Sat by Pulse 96 96 96 Oximetry 12/15/16 12/15/16 12/15/16 04:35 04:40 04:45 Temperature Pulse Rate 93 H 83 81 Pulse Rate [ From Monitor] Respiratory Rate Blood Pressure Blood Pressure [Left Arm] O2 Sat by Pulse 96 95 96 Oximetry 12/15/16 12/15/16 12/15/16 04:50 04:55 05:00 Temperature Pulse Rate 77 79 81 Pulse Rate [ From Monitor] Respiratory Rate Blood Pressure Blood Pressure [Left Arm] O2 Sat by Pulse 96 96 96 Oximetry 12/15/16 12/15/16 12/15/16 05:05 05:10 07:06 Temperature Pulse Rate 77 80 73 Pulse Rate [ From Monitor] Respiratory Rate Blood Pressure 113/54 Blood Pressure [Left Arm] O2 Sat by Pulse 95 95 Oximetry 12/15/16 07:19 Temperature 98.1 F Pulse Rate Pulse Rate [ From Monitor] Respiratory 14 Rate Blood Pressure Blood Pressure [Left Arm] O2 Sat by Pulse Oximetry - Exam Breasts: normal Cardiovascular: Regular rate Lungs: Clear to auscultation, Normal air movement Abdomen: Present: normal appearance, soft, normal bowel sounds Vulva: both: normal Uterus: Present: normal FHR: auscultation normal, category 1 Uterine Contraction Monitor Mode: External Cervical Dilatation: 1 Cervical Effacement Percentage: 40 station: -3 Uterine Contraction Pattern: Absent Uterine Tone Measurement Phase: Resting Extremities: normal Deep Tendon Reflex Grade: Normal +2 - Labs Labs: Abnormal Labs 12/13/16 12/13/16 20:04 21:00 WBC 11.6 H RDW 12.0 L Ur Specific [place] 1.002 L
--- NOTE | 2016-12-15 10:13 | Discharge Summary ---
Providers - Providers Date of Admission: 12/13/16 21:15 Date of discharge: 12/15/16 Attending physician: SACHA DAUGHERTY Primary care physician: SACHA DAUGHERTY Hospitalization Reason for admission: observation ( labor) Discharge diagnosis: other (IUP @ 34+5, contractions) Hospital course: observation for labor and steroids Condition at discharge: Good Disposition: DISCHARGED TO HOME OR SELFCARE - Discharge Diagnoses (1) 34 weeks gestation of Status: Acute (2) labor in third trimester Status: Acute Qualifiers: labor delivery status: without delivery Fetus number: F Qualified Code(s): O60.03 - labor without delivery, third trimester Plan - Provider Discharge Summary Activity: routine Diet: routine Instructions: routine Additional instructions: [] Smoking cessation referral if applicable(refer to patient education folder for contact #) [] Refer to [facility]'s [facility] [address] Booklet Call your doctor immediately for: * Fever > 100.5 * Heavy vaginal bleeding ( >1 pad per hour) * Severe persistent headache * Shortness of breath * Reddened, hot, painful area to leg or breast * Keep incision clean and dry at all times and follow doctor's instructions regarding bathing/showering * Pelvic rest - no sex until okayed by provider - Follow up plan Follow up: SACHA DAUGHERTY MD [Primary Care Provider] - 7 Days (Please keep your next schedule appointment in the office. Pelvic rest - no sex until next okayed by provider. ) Forms: [facility] Discharge Summary
== END 2016-12-15 10:34 | disposition home or self-care (01) | DRG 778 ==
LOC: TRG 19:30 → LD 21:15 → OBSVTOIN 21:19
PROVIDERS: ADMIT Obstetrics & Gynecology; ATTEND Obstetrics & Gynecology
DX: O60.03 Preterm labor without delivery, third trimester (principal); Z3A.34 34 weeks gestation of pregnancy
CPT/HCPCS: 36415; 76805; 81001; 85027; 86592; 86850; 86900; 86901; 87086; 87116; 96361; 96372; 96374; 96376; G0378; J0702; J3010; J7120

== ENCOUNTER 2016-12-16 16:52 | Outpatient (CLI) | payer MEDICAID ==
[2016-12-16 17:17] VITALS: BP 116/59
[2016-12-16 18:02] LABS: Bilirubin,Urine NEG (Negative); Blood,Urine NEG (Negative); Ketones,Urine NEG (Negative); Leukocyte Esterase,Urine NEG (Negative); Nitrite,Urine NEG (Negative); Protein,Urine <15 mg/dL mg/dL (Negative); RBC,Urine < 1.0 /HPF (0.0-6.0); Urobilinogen,Urine < 2.0 mg/dL (<2.0); WBC,Urine < 1.0 /HPF (0.0-6.0)
[2016-12-16] MEDS ORDERED: LACTATED RINGERS 1,000 ML IV ONE (18:02)
[2016-12-16] MEDS ORDERED: BRETHINE SUB-Q ONE (18:02)
== END 2016-12-16 20:05 | disposition home or self-care (01) ==
LOC: TRG 16:52
PROVIDERS: ATTEND Obstetrics & Gynecology
DX: O47.03 False labor before 37 completed weeks of gestation, third trimester (principal); Z3A.34 34 weeks gestation of pregnancy
CPT/HCPCS: 59025; 81001; 96360; J3105; J7120

== ENCOUNTER 2016-12-30 22:06 | Outpatient (CLI) | payer MEDICAID ==
[2016-12-30 22:27] VITALS: BP 105/66
[2016-12-30 23:12] LABS: Bilirubin,Urine NEG (Negative); Blood,Urine NEG (Negative); Ketones,Urine NEG (Negative); Leukocyte Esterase,Urine SM (Negative); Mucus,Urine FEW /HPF; Nitrite,Urine NEG (Negative); Protein,Urine <15 mg/dL mg/dL (Negative); WBC,Urine < 1.0 /HPF (0.0-6.0)
== END 2016-12-30 23:22 | disposition home or self-care (01) ==
LOC: TRG 22:06
PROVIDERS: ATTEND Obstetrics & Gynecology
DX: O47.1 False labor at or after 37 completed weeks of gestation (principal); Z3A.37 37 weeks gestation of pregnancy
CPT/HCPCS: 59025; 81001

== ENCOUNTER 2017-01-01 18:07 | Outpatient (CLI) | payer MEDICAID ==
[2017-01-01 18:51] VITALS: BP 110/58
[2017-01-01] MEDS ORDERED: VISTARIL PO ONE (20:00)
== END 2017-01-01 20:05 | disposition home or self-care (01) ==
LOC: TRG 18:07
PROVIDERS: ATTEND Obstetrics & Gynecology
DX: O47.03 False labor before 37 completed weeks of gestation, third trimester (principal); Z3A.36 36 weeks gestation of pregnancy
CPT/HCPCS: Q0177

== ENCOUNTER 2017-01-09 10:13 | Outpatient (CLI) | payer MEDICAID ==
[2017-01-09 10:47] VITALS: BP 101/63
== END 2017-01-09 11:35 | disposition home or self-care (01) ==
LOC: TRG 10:13
PROVIDERS: ATTEND Obstetrics & Gynecology
DX: O47.1 False labor at or after 37 completed weeks of gestation (principal); Z3A.38 38 weeks gestation of pregnancy
CPT/HCPCS: 59025

== ENCOUNTER 2017-01-13 22:24 | Outpatient (CLI) | payer MEDICAID | END 2017-01-13 23:38 | disposition home or self-care (01) | LOC: TRG 22:24 | PROVIDERS: ATTEND Obstetrics & Gynecology | DX: O47.1 False labor at or after 37 completed weeks of gestation (principal); Z3A.38 38 weeks gestation of pregnancy | CPT/HCPCS: 59025 ==

== ENCOUNTER 2017-01-23 06:02 | Inpatient (IN) | payer MEDICAID ==
[2017-01-23] MEDS ORDERED: MINERAL OIL PO PRN (06:22)
[2017-01-23] MEDS ORDERED: ZOFRAN IV PRN (06:22)
[2017-01-23] MEDS ORDERED: SUBLIMAZE IV PRN (06:22)
[2017-01-23] MEDS ORDERED: XYLOCAINE 2% INFILTRATI ONE (06:22)
[2017-01-23] MEDS ORDERED: BRETHINE SUB-Q PRN (06:22)
[2017-01-23] MEDS ORDERED: ePHEDrine SULFATE IV PRN ×2 (06:22→09:30)
[2017-01-23] MEDS ORDERED: PITOCin/NS 30 UNIT/500ML 30 UNITS/500 ML BAG IV SCH (07:00)
[2017-01-23] MEDS ORDERED: PITOCin/NS 20 UNIT/1000ML DRIP 20 UNITS/1,000 ML BAG IV SCH (07:00)
[2017-01-23] MEDS: LACTATED RINGERS 1,000 ML IV SCH ×3 (07:28→09:47)
[2017-01-23 07:40] LABS: Hematocrit 33.6 % (30.3-42.9); Hemoglobin 10.7 gm/dl (10.1-14.3); Mean Corpuscular HGB Conc 32 % (30-34); Mean Corpuscular Hemoglobin 27 pg (28-32); Mean Corpuscular Volume 83 fl (79-97); Platelet Count 267 K/mm3 (140-440); Red Blood Count 4.02 M/mm3 (3.65-5.03); Red Cell Distribution Width 13.7 % (13.2-15.2); White Blood Count 11.6 K/mm3 (4.5-11.0)
--- NOTE | 2017-01-23 08:47 | History and Physical Report ---
History of Present Illness Date of examination: 01/23/17 (presents in active labor) Date of admission: 01/23/17 06:20 Chief complaint: vaginal bleeding and contractions History of present illness: EDC Confirmation: 01/23/2017 Gestational Age: 14 5/7 weeks Past History : 3 Term Births: 1 Premature Births: 0 Living Children: 1 Para: 1 Mult. Births: 0 Prev : 0 Prev. attempt? 0 Aborta: 1 Elect. Ab: 0 Spont. Ab: 1 Ectopics: 0 # 1 Delivery date: 02/17/2011 Weeks Gestation: 40 labor: no Delivery type: Hours of labor: 8 Anesthesia type: epidural Delivery location: [facility] Sex: Male weight: 6-4 Name: Joshua # 2 Delivery date: 01/2016 Weeks Gestation: 5 Delivery type: SAB Comments: No D&C Past Medical History: Negative Past Medical History Past Surgical History: Negative Past Surgical History Past Medical History Surgery (Non-drill operator pneumatic): Negative Past Surgical History Abnormal PAP: negative Uterine Anomaly: negative Social Hx: Patient is single engaged Infection History Hx of STD: Trich HIV Risk Eval: low risk Hepatitis B Risk Eval: low risk Personal hx. of genital herpes: no Partner hx. of genital herpes: no Genetic History Congenital Heart Defect: Mom: no Dad: no Felecia Disease: Mom: no Dad: no Thalassemia Mom: no Dad: no Neural Tube Defect Mom: no Dad: no Down's Syndrome Mom: no Dad: no Kartik-Sachs Mom: no Dad: no Sickle Cell Disease/Trait Mom: no Dad: no Hemophilia Mom: no Dad: no Muscular Dystrophy Mom: no Dad: no Cystic Fibrosis Mom: no Dad: no Justin Chorea Mom: no Dad: no Mental Retardation Mom: no Dad: no Fragile X Mom: no Dad: no Other Genetic/Chromosomal Disorder Mom: no Dad: no Child w/other defect Mom: no Dad: no Enviromental Exposures Xray Exposure: yes Medication, drug, or alcohol use since LMP: yes Chemical/Other Exposure: yes Exposure to Cat Liter: no Active Medications (reviewed today): None Current Allergies (reviewed today): No known allergies Laboratory Results Date/Time Collected: 07/30/2016 Routine Urinalysis Leukocytes: 2+ Nitrite: negative Urobilinogen: negative Protein: Negative Blood: 1+ Spec. [place]: 1.010 Ketone: smal (15) Bilirubin: negative Glucose: Negative Urine HCG: positive Review of Systems General Complains of fatigue. Denies fever, chills, sweats, anorexia, weakness, malaise, weight loss and sleep disorder. Complains of pelvic pain. Denies vaginal discharge, incontinence, dysuria, hematuria, urinary frequency, amenorrhea, menorrhagia, abnormal vaginal bleeding, genital sores, decreased libido, painful periods, painful sex, urinary urgency, hot flashes, vaginal dryness, vaginal itching and vaginal odor. CV Denies chest pains, palpitations, syncope, dyspnea on exertion, orthopnea, PND and peripheral edema. Resp Denies cough, dyspnea at rest, excessive sputum, hemoptysis, wheezing and pleurisy. GI Denies nausea, vomiting, diarrhea, constipation, change in bowel habits, abdominal pain, melena, hematochezia, jaundice, gas/bloating, indigestion/ heartburn, dysphagia and odynophagia. Breast Complains of breast pain. Denies left breast lump, right breast lump, nipple discharge, bloody discharge from nipple, abnormal mammogram and breast enlargement. Psych Denies depression, anxiety, irritability and mood swings. PHYSICAL EXAM HEENT: normocephalic, no lesions or deformities Neck/Thyroid: supple, thyroid normal Skin no significant abnormal lesions or rashes Chest: respiratory effort normal, clear to auscultation Breasts: skin/areolae normal, no masses, no nipple discharge, no erythema/warmth /tenderness, and axillae normal. CV: regular, normal S1-S2, no murmur, no rub, no gallop Abdomen: normal bowel sounds, soft, nontender, no HSM Musculoskeletal: grossly normal ROM in joints, no joint tenderness or muscle weakness Neuro: no gross anomalities Extremities: no clubbing, cyanosis, or edema .Tatoo(s) are present GRAPE CUTTER Exams Vulva/Vagina: No lesions, normal BUS, normal rugae Cervix: No lesions; no cervical motion tenderness Uterus: Enlarged uterus 12 to 14 weeks size Adnexae: no masses or tenderness Rectovaginal: exam defered Past History - Obstetrical History Expected Date of Delivery: 01/23/17 Actual Gestation: 40 Week(s) 0 Day(s) : 3 Para: 1 Hx # Term Pregnancies: 1 Spontaneous Abortions: 1 Number of Living Children: 1 Medications and Allergies Allergies Allergy/AdvReac Type Severity Reaction Status Date / Time No Known Allergies Allergy Verified 12/16/16 17:46 Home Medications Medication Instructions Recorded Confirmed Last Taken Type Vit No.130/Iron/FA 1 each PO DAILY 10/28/16 01/01/17 01/01/17 History [ Tablet] 0800 Active Meds: Active Medications Fentanyl (Sublimaze) 100 mcg IV Q2H PRN PRN Reason: Labor Pain Last Admin: 01/23/17 07:25 Dose: 100 mcg Lactated Ringer's (Lactated Ringers) 1,000 mls @ 125 mls/hr IV DIRECT MAXX Last Admin: 01/23/17 08:31 Dose: 999 mls/hr Oxytocin/Sodium Chloride (Pitocin/Ns 20 Unit/1000ml Drip) 20 units in 1,000 mls @ 125 mls/hr IV DIRECT MAXX Oxytocin/Sodium Chloride (Pitocin/Ns 30 Unit/500ml) 30 units in 500 mls @ 4 mls /hr IV Q30MIN MAXX PRN Reason: Protocol Mineral Oil (Mineral Oil) 30 ml PO QHS PRN PRN Reason: Constipation Ondansetron HCl (Zofran) 4 mg IV Q8H PRN PRN Reason: Nausea And Vomiting - Vital Signs Vital signs: Vital Signs Pulse Pulse Ox 74 99 01/23/17 06:07 01/23/17 06:07 Temp Pulse Resp BP Pulse Ox 96.8 F L 63 20 114/68 100 01/23/17 07:36 01/23/17 08:35 01/23/17 07:55 01/23/17 07:36 01/23/17 08:35 - Physical Exam Breasts: Positive: deferred Cardiovascular: Regular rate, Normal S1, Normal S2 Lungs: Positive: Normal air movement Abdomen: Positive: normal appearance, soft, normal bowel sounds. Negative: distention, tenderness Genitourinary (Female): Positive: normal external genitalia, normal perenium Vulva: both: normal Vagina: Positive: normal moisture. Negative: discharge Cervix: Negative: lesion, discharge Uterus: Positive: normal size, normal contour Adnexa: both: normal Anus/Rectum: Positive: normal perianal skin, heme negative. Negative: rectal mass, hemorrhoids Extremities: Positive: normal Deep Tendon Reflex Grade: Normal +2 - Obstetrical FHR: category 1 Uterine Contraction Monitor Mode: External Cervical Dilatation: 5 (bloody show) Cervical Effacement Percentage: 90 station: -1 Uterine Contraction Pattern: Irregular Uterine Contraction Intensity: Moderate Results Result Diagrams: 01/23/17 07:09 Abnormal lab results 01/23/17 Range/Units 07:09 WBC 11.6 H (4.5-11.0) K/mm3 MCH 27 L (28-32) pg All other labs normal. Laboratory Data-Patient Name: EVERTON PATEL Test Date Result Blood Type 08/21/2016 O Rh 08/21/2016 Positive Antibody Screen negative Rubella 08/21/2016 IMMUNE Serology (RPR) 12/23/2016 NR HBsAg 08/21/2016 Negative Hemoglobin 10/07/2016 11.2 Hematocrit 10/07/2016 33.2 Platelets 08/21/2016 260 [id number]/UL Chlamydia DNA 07/30/2016 Negative GC DNA/Culture 07/30/2016 Urine Culture 12/09/2016 Final report Group B Strep cult 12/13/2016 negative PAP HIV 12/23/2016 AFP/Quad Screen 08/21/2016 Glucola Test 3hr GTT (Fasting) 1 hr 2 hr 3 hr [facility]-Patient Name:EVERTON PATEL Test Date Result Varicella Ab Sickle Cell 08/21/2016 Negative PPD Fibronectin Cystic Fibrosis Parvovirus TSH Free T4 Hepatitis C ALT AST Uric Acid Creatinine 24 hr Urine Protein DAVY Assessment and Plan 21yo @ 40 weeks with bloody show in active labor GBS negative. Orders in EMR
--- NOTE | 2017-01-23 09:19 | Anesthesia Consultation ---
Anesthesia Consult and Med Hx Date of service: 01/23/17 - Airway Anesthetic Teeth Evaluation: Good ROM Head & Neck: Adequate Mental/Hyoid Distance: Adequate Mallampati Class: Class II Intubation Access Assessment: Probably Good - Pulmonary Exam CTA: Yes - Cardiac Exam Cardiac Exam: RRR - Pre-Operative Health Status ASA Pre-Surgery Classification: ASA2 Proposed Anesthetic Plan: Epidural, Spinal - Pulmonary Hx Asthma: No COPD: No Hx Pneumonia: No - Cardiovascular System Hx Hypertension: No - Central Nervous System Hx Seizures: No Hx Psychiatric Problems: No - Endocrine Hx Renal Disease: No Hx End Stage Renal Disease: No Hx Hypothyroidism: No Hx Hyperthyroidism: No - Hematic Hx Anemia: No Hx Sickle Cell Disease: No - Other Systems Hx Alcohol Use: No - Additional Comments Anesthesia Medical History Comments: +IUP
[2017-01-23] MEDS ORDERED: NARCAN 2 MG/2 ML IV PRN (09:30)
[2017-01-23] MEDS ORDERED: fentaNYL-BUPIV 2 MCG/ML-0.125% 200 MCG/100 ML BAG EPIDURAL SCH (10:00)
[2017-01-23] MEDS ORDERED: DULCOLAX PR PRN (10:37)
[2017-01-23] MEDS ORDERED: METHERGINE PO PRN (10:37)
[2017-01-23] MEDS ORDERED: PHENERGAN PO PRN (10:37)
[2017-01-23] MEDS ORDERED: LANSINOH TP PRN (10:37)
[2017-01-23] MEDS ORDERED: MILK OF MAGNESIA PO PRN (10:37)
[2017-01-23] MEDS ORDERED: TYLENOL PO PRN (10:37)
[2017-01-23] MEDS ORDERED: BENADRYL PO PRN (10:37)
[2017-01-23] MEDS ORDERED: TUCKS PAD TP PRN (10:37)
--- NOTE | 2017-01-23 10:47 | Procedure Note ---
OB Delivery Note - Delivery Date of Delivery: 01/23/17 Radar Tester: ANDREA LAUREN Estimated blood loss: 300cc - Vaginal Delivery presentation: vertex Delivery position: OA Intrapartum events: none Delivery induction: none Delivery augmentation: rupture of membranes Delivery monitor: external FHT, external uterine Route of delivery: Delivery placenta: spontaneous Delivery cord: 3 umbilical vessels Episiotomy: none Delivery laceration: none Anesthesia: epidural Delivery comments: Called by RN pt feeling pressure s/p epidural. SVE on my arrival C,C,0 live born female over intact perineum. Baby to mom's abdomen skin to skin Cord blood obt Placenta and membrane del complete and intact, 3 vessel cord. Pit IVFs 8/9, EBL 300, Wgt 7-15. mom and baby remain LDR stable. - Infant A at 1 minute: 8 at 5 minutes: 9 Gender: Female (wgt 7-15)
[2017-01-23] MEDS ORDERED: SODIUM CHLORIDE FLUSH SYRINGE 10 ML IV NR (11:00)
[2017-01-23] MEDS: NORCO 5/325 PO PRN ×2 (14:13→21:09)
[2017-01-23] MEDS ORDERED: PITOCin/NS 20 UNIT/1000ML DRIP 20,000 MILLIUNITS/1,000 ML BAG IV ONE (16:06)
[2017-01-23] MEDS: MOTRIN PO SCH (16:21)
--- NOTE | 2017-01-23 18:38 | Event Note ---
Date: 01/23/17 Called by nursing staff regarding patient having vaginal bleeding with passage of some large clots. Bleeding is now reported to be within normal range. Patient was given Methergine as well as is receiving Pitocin via IV. We'll continue both at this time and monitor hemoglobin and hematocrit closely.
[2017-01-24 00:22] LABS: Hematocrit 25.5 % (30.3-42.9); Hemoglobin 8.1 gm/dl (10.1-14.3)
[2017-01-24] MEDS ORDERED: BOOSTRIX IM ONE ×2 (06:00→10:37)
[2017-01-24] MEDS: MOTRIN PO SCH (06:09)
[2017-01-24] MEDS ORDERED: M-M-R II VACCINE SUB-Q ONE (10:37)
--- NOTE | 2017-01-24 11:05 | Progress Note ---
Subjective Date of service: 01/24/17 Interval history: 1st day after normal vaginal delivery Patient is in the bed, relatively comfortable. Pain is mostly controlled with pain meds. Ambulated well. No residual neurological deficit. No anesthesia complications Objective - Constitutional Vitals: Vital Signs - 12hr 01/23/17 01/24/17 23:55 09:28 Temperature 98.4 F 98.1 F Pulse Rate [ 61 78 Left Radial] Respiratory 18 20 Rate Blood Pressure 112/63 110/50 [Left Arm] - Labs CBC & Chem 7: 01/23/17 23:56 Labs: Abnormal lab results 01/23/17 Range/Units 23:56 Hgb 8.1 L (10.1-14.3) gm/dl Hct 25.5 L D (30.3-42.9) %
--- NOTE | 2017-01-24 11:15 | Discharge Summary ---
Providers - Providers Date of Admission: 01/23/17 06:20 Date of discharge: 01/24/17 Attending physician: DIANA CAMPBELL Primary care physician: DIANA CAMPBELL Hospitalization Reason for admission: active labor Delivery: Episiotomy: none Laceration: none Other procedures: none complications: none Discharge diagnosis: IUP at term delivered baby: female Hospital course: Patient was admitted underwent a normal spontaneous vaginal delivery. Her course was benign. She was afebrile throughout her stay. Her day 1 hematocrit was 25.5%. Patient asymptomatic with anemia. Patient is breast and bottle feeding and planned on using a vasectomy for post contraceptive Condition at discharge: Good Disposition: DISCHARGED TO HOME OR SELFCARE - Discharge Diagnoses (1) Spontaneous vaginal delivery Status: Acute Plan - Discharge Medications Prescriptions: Ferrous Sulfate [Feosol 325 MG tab] 325 mg PO BID #60 tablet Ibuprofen [Motrin 800 MG tab] 800 mg PO Q6H PRN #30 tablet PRN Reason: Pain - Provider Discharge Summary Activity: routine, no sex for 6 weeks, no heavy lifting 4 weeks Diet: routine Instructions: routine Additional instructions: [] Smoking cessation referral if applicable(refer to patient education folder for contact #) [] Refer to [facility] Booklet Call your doctor immediately for: * Fever > 100.5 * Heavy vaginal bleeding ( >1 pad per hour) * Severe persistent headache * Shortness of breath * Reddened, hot, painful area to leg or breast * Drainage or odor from incision. * - Follow up plan Follow up: DIANA CAMPBELL MD [Primary Care Provider] - 7 Days
[2017-01-24 17:27] VITALS: BP 110/58
== END 2017-01-24 16:57 | disposition home or self-care (01) | DRG 775 ==
LOC: TRG 06:02 → LD 06:20 → OB 12:15
PROVIDERS: ADMIT Obstetrics & Gynecology; ATTEND Obstetrics & Gynecology
PROC: 10E0XZZ Delivery of Products of Conception, External Approach (ICD-10-PCS; principal; 2017-01-23)
PROC: 00HU33Z Insertion of Infusion Device into Spinal Canal, Percutaneous Approach (ICD-10-PCS; 2017-01-23)
PROC: 3E0R3CZ (ICD-10-PCS; 2017-01-23)
DX: O90.81 Anemia of the puerperium (principal); D64.9 Anemia, unspecified; Z3A.40 40 weeks gestation of pregnancy; Z37.0 Single live birth
CPT/HCPCS: 36415; 85014; 85018; 85027; 86592; 86850; 86900; 86901; 90471; A6250; J2590; J3010; J7120